=== PATIENT | female | born 1995 | race Caucasian/White ===

== ENCOUNTER 2018-06-11 10:25 | Emergency (ER) | payer MEDICAID, OTHER ==
[~2018-06-11] VITALS: Ht 152.4 cm; Wt 49.8 kg
[2018-06-11 10:29] VITALS: BP 109/59; PULSE 84; RESP 20; Ht 152.4 cm; Wt 49.8 kg
--- NOTE | 2018-06-11 15:30 | ERD ---
ER Documentation Chief Complaint Chief Complaint Sent from clinic for evaluation No fetel heart beat and severe back pain HPI 23-year-old female presenting with findings concerning for miscarriage. Patient started having vaginal bleeding which is been intermittent for the last 2 weeks. She is been seen at [facility] as well as [facility]. Patient is being seen by Dr. Morley. Patient is not passing any clots. Denies back pain. Denies medical problems. NKDA. Surgical history denies. Social history denies ROS All systems reviewed and are negative except as per history of present illness. PMhx/Soc Medical and Surgical Hx: pt denies Medical Hx, pt denies Surgical Hx Hx Alcohol Use: No Hx Substance Use: No Hx Tobacco Use: No Smoking Status: Never smoker FmHx Family History: No diabetes, No coronary disease, No other Physical Exam Vitals Vital Signs Date Temp Pulse Resp B/P (MAP) Pulse Ox O2 O2 Flow FiO2 Time Delivery Rate 06/11/18 99.3 84 20 109/59 100 10:29 (76) Physical Exam GENERAL: The patient is well-appearing, well-nourished, in no acute distress HEENT: Atraumatic. Conjunctivae are pink. Pupils equal, round, and reactive to light. There is no scleral icterus. Tympanic membranes clear bilaterally. Oropharynx clear. NECK: C-spine is soft and supple. There is no meningismus. There is no cervical lymphadenopathy. CHEST: Clear to auscultation bilaterally. There are no rales, wheezes or rhonchi. HEART: Regular rate and rhythm. No murmurs, clicks, rubs or gallops ABDOMEN:Soft, nontender and nondistended. Good bowel sounds. No rebound or gua rding. No gross peritonitis. No gross organomegaly or masses. Result Diagram: 06/11/18 1107 Results 24 hrs Laboratory Tests Test 06/11/18 11:07 White Blood Count 6.9 10^3/ul Red Blood Count 4.77 10^6/ul Hemoglobin 14.5 g/dl Hematocrit 43.9 % Mean Corpuscular Volume 92.0 fl Mean Corpuscular Hemoglobin 30.4 pg Mean Corpuscular Hemoglobin Concent 33.0 g/dl Red Cell Distribution Width 12.1 % Platelet Count 237 10^3/UL Mean Platelet Volume 11.4 fl Immature Granulocytes % 0.300 % Neutrophils % 69.4 % Lymphocytes % 22.0 % Monocytes % 6.7 % Eosinophils % 0.7 % Basophils % 0.9 % Nucleated Red Blood Cells % 0.0 /100WBC Immature Granulocytes # 0.020 10^3/ul Neutrophils # 4.8 10^3/ul Lymphocytes # 1.5 10^3/ul Monocytes # 0.5 10^3/ul Eosinophils # 0.1 10^3/ul Basophils # 0.1 10^3/ul Nucleated Red Blood Cells # 0.0 10^3/ul Urine Color YELLOW Urine Clarity SLIGHTLY CLOUDY Urine pH 6.0 Urine Specific [place] 1.024 Urine Ketones TRACE mg/dL Urine Nitrite NEGATIVE mg/dL Urine Bilirubin NEGATIVE mg/dL Urine Urobilinogen NEGATIVE mg/dL Urine Leukocyte Esterase NEGATIVE Claudio/ul Urine Microscopic RBC 1 /HPF Urine Microscopic WBC 3 /HPF Urine Squamous Epithelial Cells FEW /HPF Urine Bacteria FEW /HPF Urine Mucus FEW /HPF Urine Hemoglobin NEGATIVE mg/dL Urine Glucose NEGATIVE mg/dL Urine Total Protein NEGATIVE mg/dl Beta HCG, Quantitative 99300.0 mIU/ml Procedures/MDM DIAGNOSTIC IMAGING REPORT Patient: YANIQUE SON : 1995 Age: 23 Sex: F MR #: [id number] DOS: 06/11/18 1055 Ordering MD: JANICE CALLE PA-C Location: [facility] Room/Bed: PROCEDURE: Obstetrical ultrasound . CLINICAL INDICATION: Vaginal bleeding, demise TECHNIQUE: Multiple sonographic images of the pelvis were obtained utilizing a transabdominal and endovaginal technique. The images were reviewed on a PACS workstation. COMPARISON: None. FINDINGS: There is a single intrauterine present with the crown-rump length measuring 1.3 cm which corresponds to a calculated gestational age of 7 weeks and 4 days. No heart tones are identified. The ovaries are normal. The right ovary measures 3.3 x 1.7 x 2.1 cm. The left ovary measures 2.8 x 1.1 x 1.8 cm. No significant free fluid is present within the pelvis. No abnormal adnexal masses are present. RPTAT: AA IMPRESSION: Single intrauterine at 7 weeks and 4 days. NO HEART TONES NOTED, CONSISTENT WITH DEMISE. . MDM: 23-year-old female presenting with findings consistent with demise. Patient is recommended to follow-up with her clinic if there is no emergent reason for D&C at this time. Patient is beginning to have vaginal bleeding so she may pass he does naturally. Patient is recommended follow-up with [facility] within the next 2 days to schedule D&C. There is no fevers and I have low suspicion for endometritis. Patient is discharged with strict ER precautions. All questions answered at discharge Departure Diagnosis: Primary Impression: demise Condition: Stable Patient Instructions: Miscarriage (Incomplete) Referrals: [facility] [place] [id number] [facility] [address] [place] [address] OFFICE FAX [facility] [address] [place] [address] [address] [place] [address] [place] [address] [address] [facility] [address] [facility] [address] [facility] [address] [place] [address] [facility] [address] [place] [address] [facility] [id number] - [address] [place] [address] [address] [address] [facility]. [address], [place] [address] [address] [address] [place], [place] [id number] Additional Instructions: FOLLOW UP WITH YOUR PRIMARY CARE PHYSICIAN TOMORROW.Return to this facility if you are not improving as expected. AMANDA CALLE PA-C Jun 11, 2018 15:30
== END 2018-06-11 12:58 | disposition home or self-care (01) ==
LOC: FTE 10:25
DX: O02.1 Missed abortion (principal)
CPT/HCPCS: 36415; 76801; 76817; 81001; 84702; 85025; 86900; 86901; Z7502; 81003

== ENCOUNTER 2018-06-13 20:00 | Emergency (ER) | payer SELFPAY ==
[~2018-06-13] VITALS: Ht 157.5 cm; Wt 50.3 kg
[2018-06-13 20:11] VITALS: BP 128/76; PULSE 85; RESP 18; Ht 157.5 cm; Wt 50.3 kg
== END 2018-06-14 02:13 | disposition left against medical advice (07) ==
LOC: FTE 20:00
DX: Z53.21 Procedure and treatment not carried out due to patient leaving prior to being seen by health care provider (principal)